=== PATIENT | female | born 1950 | race American Indian/Alaskan Native ===

== ENCOUNTER 2017-03-19 13:24 | Outpatient (CLI) | payer MEDICARE, OTHER ==
--- NOTE | 2017-03-19 15:58 | Mammography Report ---
Augmented screening mammogram: Standard imaging and displacement images are obtained and compared to prior exams dating back to 2010. The saline implants remain intact and symmetric. The surrounding parenchyma is that of intermediate fibroglandular density in a symmetric pattern. In the right CC implant image however a small circumscribed density is noted laterally which I cannot identify on prior exams. The remaining findings bilaterally are unchanged and unremarkable. CAD used. Impression: Right breast asymmetry. Recommendation: Additional compression imaging of the right breast and possible ultrasound. BI-RADS CATEGORY: 0 = Needs additional imaging evaluation ACR BI-RADS MAMMOGRAPHIC CODES: 0 = Needs additional imaging evaluation; 1 = Negative; 2 = Benign; 3 = Probably benign; 4 = Suspicious; 5 = Malignant; 6 = Known biopsy-proven malignancy COMMENT: 1. Dense breast tissue, i.e., adenosis, fibrocystic changes, etc., may obscure an underlying neoplasm. 2. Approximately 10% of cancers are not detected with mammography. 3. A negative mammography report should not delay biopsy if a clinically suspicious mass is present.
== END 2017-03-19 13:25 | disposition home or self-care (01) ==
LOC: MAMMO 13:24
PROVIDERS: ATTEND Family Medicine
DX: Z12.31 Encounter for screening mammogram for malignant neoplasm of breast (principal); Z98.82 Breast implant status
CPT/HCPCS: 77067